=== PATIENT | male | born 1990 | race Asian ===

== ENCOUNTER → 2020-07-24 | Outpatient (CLI) | payer BC ==
[2020-07-25 05:21] LABS: Hepatitis A Antibody IgM Non-Reactive (Non-Reactive); Hepatitis B Core IgM Non-Reactive (Non-Reactive); Hepatitis B Surface AB- Quant 4.5 mIU/mL; Hepatitis B Surface Antibody Non-Reactive (Non-Reactive); Hepatitis C IgG Antibody Non-Reactive (Non-Reactive)
== END | disposition home or self-care (01) ==
LOC: LABWHC1 15:50
PROVIDERS: ATTEND Internal Medicine
DX: R74.8 Abnormal levels of other serum enzymes (principal)
CPT/HCPCS: 36415; 86704; 86705; 86706; 86709; 86803

== ENCOUNTER → 2020-08-11 | Outpatient (CLI) | payer BC ==
[2020-08-11 18:13] LABS: Basophils # (A) 0.03 X 10*3/uL (0.00-0.10); Basophils % (A) 0.6 %; Eosinophils # (A) 0.02 X 10*3/uL (0.04-0.35); Eosinophils % (A) 0.4 %; HCT 46.2 % (39.6-50.0); Lymphocytes # (A) 1.42 X 10*3/uL (0.90-5.00); Lymphocytes % (A) 30.3 %; MCH 31.1 pg (27.0-32.0); MCHC 34.6 g/dL (32.0-37.0); MCV 89.7 fL (80.0-97.0); Monocytes # (A) 0.36 X 10*3/uL (0.20-1.00); Monocytes % (A) 7.7 %; Neutrophils # (A) 2.85 X 10*3/uL (1.80-7.70); Neutrophils % (A) 60.8 %; Platelet Count 287 X 10*3/uL (140-440); RBC 5.15 X 10*6/uL (4.40-5.60); WBC 4.69 X 10*3/uL (4.50-10.00)
[2020-08-11 19:14] LABS: Erythrocyte Sedimentation Rate 4 mm/Hr (0-15)
[2020-08-11 21:50] LABS: Gliadin AB IgA, Deaminated NEGATIVE (NEGATIVE); Gliadin AB IgA, Unit 0.5 U/mL; Gliadin AB IgG, Deaminated NEGATIVE (NEGATIVE)
[2020-08-12 01:35] LABS: ALT 51 U/L (10-49); AST 37 U/L (14-35); Albumin/Globulin Ratio 2.17 (1.60-3.17); Alkaline Phosphatase 30 U/L (41-126); Calcium 10.1 mg/dL (8.7-10.3); Carbon Dioxide 21.5 mmol/L (21.6-31.8); Chloride 104 mmol/L (96-109); Globulin 2.3 g/dL (1.6-3.3); Glucose 84 mg/dL (70-110); Potassium 4.1 mmol/L (3.5-5.5); Sodium 140 mmol/L (135-145); Total Bilirubin 0.8 mg/dL (0.2-1.2); Total Protein 7.3 g/dL (6.2-8.2)
[2020-08-12 15:27] LABS: C Reactive Protein <0.4 mg/dL (0.0-0.8)
== END | disposition home or self-care (01) ==
LOC: LABWHC1 13:12
PROVIDERS: ATTEND Internal Medicine
DX: R19.7 Diarrhea, unspecified (principal)
CPT/HCPCS: 36415; 80053; 82656; 83516; 83630; 84439; 84443; 85025; 85652; 86140; 87045; 87046; 87328; 87329

== ENCOUNTER → 2020-08-15 | Outpatient (CLI) | payer BC | END | disposition home or self-care (01) | LOC: LABWHC1 16:41 | PROVIDERS: ATTEND Internal Medicine | DX: Z20.822 Contact with and (suspected) exposure to COVID-19 (principal) | CPT/HCPCS: U0003; C9803; U0005 ==

== ENCOUNTER → 2020-08-29 | Outpatient (CLI) | payer BC ==
--- NOTE | 2020-08-29 08:46 | US ---
EXAMINATION TYPE: US abdomen complete DATE OF EXAM: 08/29/2020 COMPARISON: NONE CLINICAL HISTORY: E78.0 HYPERCHOLESTEROLEMIA,R74.0. abnormal labs EXAM MEASUREMENTS: Liver Length: 15.8 cm Gallbladder Wall: 0.2 cm CBD: 0.3 cm Spleen: 9.8 cm Right Kidney: 9.8 x 4.5 x 3.8 cm Left Kidney: 10.0 x 4.0 x 5.1 cm Pancreas: wnl Liver: Areas of focal sparing seen adjacent to GB Gallbladder: wnl Evidence for sonographic Ruiz's sign: neg CBD: wnl Spleen: wnl Right Kidney: No hydronephrosis or masses seen Left Kidney: No hydronephrosis or masses seen Upper IVC: wnl Abd Aorta: No AAA visualized The visualized liver is heterogeneous hyperechoic. Evaluation for focal masses suboptimal due to the heterogeneity. No surrounding ascites. The intrahepatic portion of the IVC and visualized abdominal aorta are within normal limits. There is no evidence of cholelithiasis. Common bile duct is unremar kable. The visualized portions of the pancreas are homogenous. The spleen is unremarkable. Kidneys are symmetric and free of hydronephrosis. No renal lesions are seen. IMPRESSION: Heterogeneous hyperechoic appearance of liver is likely an basis of diffuse fatty infiltr ation. Patient may benefit with ultrasound-guided random sampling.
== END | disposition home or self-care (01) ==
LOC: RADUSWWP 07:19
PROVIDERS: ATTEND Internal Medicine
DX: K76.0 Fatty (change of) liver, not elsewhere classified (principal)
CPT/HCPCS: 76700

== ENCOUNTER 2020-09-02 09:09 | Day surgery (SDC) | payer BC ==
[2020-08-29 11:38] VITALS: BMI 23.7
[~2020-09-02 09:09] MED LIST: LACTATED RINGERS 1,000 ML IV SCH
[2020-09-02] MEDS ORDERED: LACTATED RINGERS 1,000 ML IV ONE ×2 (09:33)
[2020-09-02 09:36] VITALS: TEMP 98.3
[2020-09-02] MEDS ORDERED: LIDOCAINE 1% (10MG/ML) FOR IV START INTRADERMA ONE (09:45)
[2020-09-02] MEDS ORDERED: PROPOFOL 10 MG/ML 20 ML VIAL IV ONE (10:56)
--- NOTE | 2020-09-02 11:26 | P.PCN ---
Date of Procedure: 09/02/20 Description of Procedure: BRIEF HISTORY: Patient is a 29-year-old male presenting for outpatient colonoscopy for evaluation of diarrhea. She reports symptoms of frequent loose stools as well as nighttime bowel movements. No family history of IBD or colon cancer. No prior colonoscopy. PROCEDURE PERFORMED: Colonoscopy with biopsy. PREOPERATIVE DIAGNOSIS: Diarrhea, altered bowel function, no prior colonoscopy. ESTIMATED BLOOD LOSS: Minimal. IV sedation per Anesthesia. PROCEDURE: After informed consent was obtained, the patient, was brought into the endoscopy unit. IV sedation was administered by Anesthesia under continuous monitoring. Digital rectal examination was normal. Initially the Olympus CF-190 flexible video colonoscope was then inserted in the rectum, gradually advanced into the cecum without any difficulty. Careful examination was performed as the scope was gradually being withdrawn. Ileocecal valve and the appendiceal orifice were visualized and appeared normal. Prep was excellent. Mucosa of the cecum, ascending colon, transverse colon, descending colon, sigmoid colon, and rectum appeared normal, with random biopsies taken of the right and left colon. Terminal ileum appeared normal with biopsies taken. Retroflexion was performed in the rectum and no lesions were seen, low-grade internal hemorrhoids were noted. The patient tolerated the procedure well. IMPRESSION: Normal-appearing colon from rectum to cecum and normal-appearing terminal ileum with random biopsies taken of the right colon, left colon and terminal ileum. Internal hemorrhoids. RECOMMENDATIONS: Findings of this examination were discussed with the patient and his family. Okay to resume diet. Okay to resume medications. Await pathology from biopsies. Follow up in the GI clinic as scheduled.
[2020-09-02 11:45] VITALS: BP 116/73; PULSE 66; RESP 18
== END 2020-09-02 12:03 | disposition home or self-care (01) ==
LOC: ORWHC2ENDO 09:09
PROVIDERS: ATTEND Internal Medicine
DX: R19.7 Diarrhea, unspecified (principal); K64.8 Other hemorrhoids
CPT/HCPCS: 88305; 45380; J2704